=== PATIENT | female | born 2000 | race American Indian/Alaskan Native ===

== ENCOUNTER 2021-12-06 15:26 | Emergency (ER) | payer MEDICAID ==
[2021-12-06 16:32] VITALS: BP 110/66
--- NOTE | 2021-12-06 22:15 | Emergency Department Report ---
ED General Adult HPI - General Chief complaint: Urogenital-Female Stated complaint: RIGHT BREAST PAIN Source: patient Mode of arrival: Ambulatory Limitations: No Limitations - History of Present Illness Initial comments: Patient is a A0 21-year-old -[place] Citizen female who is 6 weeks and who is breast-feeding at this time presents to the ED with complaint of acute onset persistent right breast pain for the last 1 week, worse in the last 3 days. Patient states that the pain is constant and persistent and there is mild swelling. Patient denies traumatic injury, headache, chest pain, shortness of breath, fever, chills, nausea and vomiting, diarrhea, abdominal pain, dysuria, urinary frequency and urgency or cough. MD Complaint: right breast pain, 6 weeks post-, breast pain -: Gradual, week(s) (1) Location: chest (right breast) Radiation: non-radiation Severity scale (0 -10): 7 Quality: aching, sharp Consistency: constant Improves with: none Worsens with: none Associated Symptoms: denies other symptoms. denies: confusion, chest pain, cough, diaphoresis, headaches, loss of appetite, malaise, nausea/vomiting, rash, seizure, shortness of breath Treatments Prior to Arrival: none - Related Data Allergies Allergy/AdvReac Type Severity Reaction Status Date / Time No Known Allergies Allergy Unverified 12/06/21 16:32 ED Review of Systems ROS: Stated complaint: RIGHT BREAST PAIN Other details as noted in HPI Constitutional: denies: chills, fever Eyes: denies: eye pain, eye discharge, vision change ENT: denies: ear pain, throat pain Respiratory: other (right breast pain). denies: cough, shortness of breath, wheezing Cardiovascular: denies: chest pain, palpitations Endocrine: no symptoms reported Gastrointestinal: denies: abdominal pain, nausea, diarrhea Genitourinary: denies: urgency, dysuria, discharge Musculoskeletal: denies: back pain, joint swelling, arthralgia Skin: denies: rash, lesions Neurological: denies: headache, weakness, paresthesias Psychiatric: denies: anxiety, depression Hematological/Lymphatic: denies: easy bleeding, easy bruising ED Past Medical Hx - Past Medical History Previous Medical History?: No - Surgical History Additional Surgical History: hernia repair ED Physical Exam - General Limitations: No Limitations General appearance: alert, in no apparent distress - Head Head exam: Present: atraumatic, normocephalic, normal inspection - Eye Eye exam: Present: normal appearance, PERRL, EOMI Pupils: Present: normal accommodation - ENT ENT exam: Present: normal exam, normal orophraynx, mucous membranes moist, TM's normal bilaterally, normal external ear exam - Neck Neck exam: Present: normal inspection, full ROM - Respiratory Respiratory exam: Present: normal lung sounds bilaterally, chest wall tenderness (palpable right breast). Absent: respiratory distress, wheezes, rales, stridor, accessory muscle use, decreased breath sounds, prolonged expiratory - Cardiovascular Cardiovascular Exam: Present: normal rhythm, tachycardia, normal heart sounds. Absent: systolic murmur, diastolic murmur, rubs, gallop - GI/Abdominal GI/Abdominal exam: Present: soft, normal bowel sounds. Absent: tenderness, guarding, rebound, hyperactive bowel sounds, hypoactive bowel sounds, organomegaly, mass - Extremities Exam Extremities exam: Present: normal inspection, full ROM, normal capillary refill - Back Exam Back exam: Present: normal inspection, full ROM - Neurological Exam Neurological exam: Present: alert, oriented X3, CN II-XII intact, normal gait, reflexes normal - Psychiatric Psychiatric exam: Present: normal affect, normal mood - Skin Skin exam: Present: warm, dry, intact, normal color. Absent: rash ED Course Vital Signs 12/06/21 16:23 Temperature 98.3 F Pulse Rate 103 H Respiratory 18 Rate Blood Pressure 110/66 [Left] O2 Sat by Pulse 100 Oximetry ED Medical Decision Making - Medical Decision Making This is a A0 21-year-old -[place] Citizen female who is 6 weeks and who is breast-feeding at this time presents to the ED with complaint of acute onset persistent right breast pain for the last 1 week, worse in the last 3 days. Patient states that the pain is constant and persistent and there is mild swelling. In the ED, patient is alert and oriented x3 and is not in any distress. Patient is hemodynamically stable. Patient however eloped from the ED before being discharged but did not sign any AMA paperwork. - Differential Diagnosis Cellulitis; mastitis; breast abscess; fibrocystic breast disease Critical care attestation.: If time is entered above; I have spent that time in minutes in the direct care of this critically ill patient, excluding procedure time. ED Disposition Clinical Impression: Acute mastitis of right breast Disposition: 07 LEFT AGAINST MEDICAL ADVICE Is pt being admited?: No Does the pt Need Aspirin: No Condition: Undetermined Instructions: Mastitis, [id number] Referrals: [facility] [Provider Group] - 3-5 Days Time of Disposition: 22:15 Print Language: [id number]
== END 2021-12-07 01:37 | disposition left against medical advice (07) ==
LOC: ED 15:26
DX: N64.4 Mastodynia (principal)
CPT/HCPCS: 99282